=== PATIENT | male | born 1980 | race Two or more races ===

== ENCOUNTER 2018-03-19 03:20 | Emergency (ER) | payer BC ==
[~2018-03-19] VITALS: Ht 188 cm; Wt 108.9 kg
--- NOTE | 2018-03-19 03:30 | NUR ---
Note undone in EDM - 03/19/18 at 0354 by ROB patient bib self, c/o fever for 2days. states he had an abscess on his left buttock two days ago and it was drained, and no antibiotics was given. patient ambulatory with steady gait. no respiratory distress noted. skin hot to touch. noted with temp 103.3. for md cavanaugh. pending orders. will continue to monitor.
--- NOTE | 2018-03-19 03:30 | NUR ---
patient bib self, c/o fever for 2days, took motrin 400mg at 3pm. states he had an abscess on his left buttock two days ago and it was drained, and no antibiotics was given. patient ambulatory with steady gait. no respiratory distress noted. skin hot to touch. noted with temp 103.3. for md cavanaugh. pending orders. will continue to monitor.
[2018-03-19] MEDS ORDERED: ACETAMINOPHEN ES 500 MG TABLET ONE (03:39)
[2018-03-19] MEDS ORDERED: ACETAMINOPHEN 325 MG TABLET PO ONE (04:00)
--- NOTE | 2018-03-19 04:15 | NUR ---
temperature rechecked, oral temp 101.6, c/o feeling hard nodule on left buttock near anus. palpated area, noted with hard nodule. made aware.
--- NOTE | 2018-03-19 04:36 | NUR ---
patient given discharge instructions. patient drove self, in stable condition. all belongings with patient. patient requested oral temp to be taken again, 99.2. patient ambulated with steady gait.
[2018-03-19 04:38] VITALS: BP 128/78
== END 2018-03-19 04:40 | disposition home or self-care (01) ==
LOC: ER 03:21
DX: K61.1 Rectal abscess (principal); R50.9 Fever, unspecified
CPT/HCPCS: 99282; A4606; Z7610